=== PATIENT | female | born 1995 | race Hispanic/Latino ===

== ENCOUNTER 2022-08-22 09:19 | Outpatient (CLI) | payer BC ==
[2022-08-22 15:47] LABS: Ferritin 41.17 ng/mL (10-291)
[2022-08-22 15:54] LABS: Vitamin B12 575 pg/mL (211-911)
[2022-08-22 16:03] LABS: HBCM Index 0.45 S/CO (0-0.79); HBSAg Index 0.31 S/CO (0-0.99); Hep A IgM AB Non-Reactive (NonReactive); Hep A IgM S/CO 0.21 S/CO (0-0.79); Hep B Surf Ag Non-Reactive S/CO (NonReactive); Hep C IgG Ab Non-Reactive (NonReactive); Hep C Index 0.16 S/CO (0-0.79); Hepatitis B Core IgM Abs Non-Reactive (NonReactive)
== END 2022-08-22 09:20 | disposition home or self-care (01) ==
LOC: SCSRAD 09:19
PROVIDERS: ATTEND Nurse Practitioner Family
DX: R10.9 Unspecified abdominal pain (principal); D64.9 Anemia, unspecified; R74.8 Abnormal levels of other serum enzymes; R53.83 Other fatigue
CPT/HCPCS: 36415; 74022; 80074; 82150; 82607; 82728; 82746; 83690